=== PATIENT | female | born 1990 | race Caucasian/White ===

== ENCOUNTER → 2016-12-08 | Day surgery (SDC) | payer OTHER ==
[~2016-12-08] VITALS: Ht 165.1 cm; Wt 55.8 kg
[~2016-12-08] MED LIST: ACET50TA PO; BUPIVACAINE HCL 0.25% 30 ML VIAL As Ordered ONE; IBUP100SUS PO; IBUP80TA PO; LANOOIN21 TOP; LIDOCAINE 2% INJ 100 MG/5 ML SDV (FOR ANES.) As Ordered ONE; LR 1,000 ML IV SCH; MEPERIDINE INJ 25 MG/ML VIAL (J2175) IV PRN; METOCLOPRAMIDE INJ 10MG/2ML VIAL (J2765) IV PRN; MIDAZOLAM INJ 2 MG/2 ML VIAL (J2250) As Ordered ONE; NORE0.353 PO; NS 1,000 ML IV SCH; No medications; ONDANSETRON 4MG/2ML VIAL (J2405) As Ordered ONE; ONDANSETRON 4MG/2ML VIAL (J2405) IV PRN; PERCOCET 5MG/325MG TAB PO PRN; PROPOFOL 200 MG/20 ML VIAL As Ordered ONE; TYLE325T5 PO; ePHEDrine SULFATE 25 MG/5 ML(5MG/ML) SYRINGE As Ordered ONE; fentaNYL 100 MCG/2 ML INJECTION (J3010) As Ordered ONE; fentaNYL 100 MCG/2 ML INJECTION (J3010) IV PRN
[2016-12-08 11:05] LABS: MEAN CORPUSCULAR HEMOGLOBIN 29.8 pg (27.0-33.0); MEAN CORPUSCULAR HGB CONC 33.3 g/dl (32.0-36.5); MEAN CORPUSCULAR VOLUME 89.4 fl (80.0-96.0); RED CELL DISTRIBUTION WIDTH 12.2 % (11.5-14.5); WHITE BLOOD COUNT 5.5 K/mm3 (4.0-10.0)
[2016-12-08 16:50] VITALS: BP 107/55
--- NOTE | 2016-12-21 21:47 | RO ---
DATE OF PROCEDURE: 12/08/2016 PREOPERATIVE DIAGNOSIS: Implanted Nexplanon. POSTOPERATIVE DIAGNOSIS: Implanted Nexplanon. OPERATION PROPOSED: Removal of Nexplanon with C-arm. OPERATION PERFORMED: Removal of Nexplanon with C-arm. SURGEON: Dr. Amrik Mclaughlin [address] ENGINEER: ANESTHESIA: General. ESTIMATED BLOOD LOSS: Less than 3 mL. DESCRIPTION OF PROCEDURE: Under adequate anesthesia, prepped and draped the left arm in the appropriate position. We were unable to find the Nexplanon on digital examination and therefore, we required to use the C-arm x-ray in order to locate it. Putting a hemostat in the vicinity of where we felt that the Nexplanon was, we took one picture and found that it was located deep in the patient's muscle. And we moved the hemostat in the position where we would approximately find the end of the Nexplanon. We then made a small incision in the skin, placed the hemostat, which was a straight hemostat, in the area. We still could not feel the Nexplanon. We took another picture with the C-arm and found it to be deeper than anticipated. We had to make a vertical incision about 1-1/2 cm into the skin and dissect down. We did find that the Nexplanon was in between the brachial artery and the brachial vein and we were able to extricate the Nexplanon without incident. There was no evidence of active bleeding. We put two mattress sutures into the vertical incision and the local anesthetic, about 4 mL of Marcaine 0.25% without and the patient was sent to recovery in good condition and we will evaluate her strength, her touch, her sensations prior to discharge. Copy To: Ruma Ramos OB
== END ==
LOC: M SDC 10:24
PROVIDERS: ATTEND Obstetrics & Gynecology
DX: Z30.49 Encounter for surveillance of other contraceptives (principal)
CPT/HCPCS: 11982; 36415; 76000; 84702; 85027; 88300; J2250; J2405; J3010